=== PATIENT | female | born 1965 | race Caucasian/White ===

== ENCOUNTER 2018-02-07 21:05 | Emergency (ER) | payer BC ==
[~2018-02-07] VITALS: Ht 165.1 cm; Wt 116.0 kg
[~2018-02-07 21:05] MED LIST: HYDR-569 PO
[2018-02-07] MEDS ORDERED: BUSP10TA11 PO (21:21)
[2018-02-07] MEDS ORDERED: GABA-532 PO (21:21)
[2018-02-07] MEDS ORDERED: CLON0.1T PO (21:21)
[2018-02-07] MEDS ORDERED: THY60T PO (21:21)
[2018-02-07] MEDS ORDERED: QUET-1 PO (21:21)
[2018-02-07] MEDS ORDERED: DESV50TA PO (21:21)
[2018-02-07] MEDS ORDERED: ETOD-78 PO (21:21)
[2018-02-07] MEDS ORDERED: LISI-600 PO (21:21)
[2018-02-07] MEDS ORDERED: OXCA300T PO (21:21)
[2018-02-08] MEDS ORDERED: CLIN-80 PO (01:51)
[2018-02-08] MEDS ORDERED: clindamycin 150mg capsule PO ONE (01:55)
[2018-02-08 02:40] VITALS: BP 153/94
== END 2018-02-08 02:41 | disposition home or self-care (01) ==
LOC: ER 21:05
DX: N76.4 Abscess of vulva (principal); J45.909 Unspecified asthma, uncomplicated; Z88.5 Allergy status to narcotic agent; Z88.0 Allergy status to penicillin; Z88.8 Allergy status to other drugs, medicaments and biological substances; Z88.2 Allergy status to sulfonamides; Z79.899 Other long term (current) drug therapy
CPT/HCPCS: 99283

== ENCOUNTER 2022-08-01 18:33 | Emergency (ER) | payer BC, MEDICARE ==
[~2022-08-01] VITALS: Ht 165.1 cm; Wt 111.0 kg
[~2022-08-01 18:33] MED LIST changes: +BUSP10TA11 PO; +CLON0.1T PO; +DESV50TA PO; +GABA-532 PO; +HYDR-4383 PO; -HYDR-569 PO; +LISI20TA28 PO; +OXCA300T16 PO; +QUET-1 PO; +THY60T PO; +[UNRECOGNIZED DRUG - CODE] PO
[2022-08-01 19:18] VITALS: BP 140/90
[2022-08-01] MEDS: amox tr/potassium clavulanate 875/125mg TAB PO ONE (20:25)
[2022-08-01] MEDS: ketorolac trometh inj. 60 MG/2 ML VIAL IM ONE (20:25)
[2022-08-01 20:40] LABS: BASOPHILS % (AUTO) 0.7 % (0-1); EOSINOPHILS % (AUTO) 0.1 % (0-6); LYMPHOCYTES # (AUTO) 0.5 X10'3 (1.1-4.8); LYMPHOCYTES % (AUTO) 12.4 % (21-51); MEAN CORPUSCULAR HEMOGLOBIN 32.3 PG (27.0-31.0); MEAN CORPUSCULAR HGB CONC 33.5 g/dL (33.0-36.5); MEAN CORPUSCULAR VOLUME 96.6 FL (78-98); MEAN PLATELET VOLUME 10.2 FL (7.4-10.4); MONOCYTES # (AUTO) 0.4 X10'3 (0-0.9); MONOCYTES % (AUTO) 10.9 % (2-12); NEUTROPHILS # (AUTO) 2.8 X10'3 (1.8-7.7); NEUTROPHILS % (AUTO) 75.9 % (42-75); PLATELET COUNT 244 X10'3 (140-440); RED BLOOD COUNT 3.73 X10'6 (4.20-5.60); RED CELL DISTRIBUTION WIDTH 13.3 % (11.5-14.5); WHITE BLOOD COUNT 3.7 X10'3 (4.5-11.0)
[2022-08-01 20:49] LABS: ALANINE AMINOTRANSFERASE 22 U/L (12-78); ALBUMIN 3.2 G/DL (3.4-5.0); ALBUMIN/GLOBULIN RATIO 0.9 (1.1-1.5); ALKALINE PHOSPHATASE 96 IU/L (46-116); ANION GAP 10 (8-16); ASPARTATE AMINO TRANSFERASE 19 U/L (10-37); BILIRUBIN,TOTAL 0.4 MG/DL (0.1-1.0); BLOOD UREA NITROGEN 5 MG/DL (7-18); BUN/CREATININE RATIO 5.1 (6.6-38.0); CALCIUM 9.1 MG/DL (8.5-10.1); CHLORIDE 105 MMOL/L (99-107); CREATININE 0.98 MG/DL (0.40-0.90); GLUCOSE 107 MG/DL (70-104); SODIUM 144 MMOL/L (135-145); TOTAL PROTEIN 6.8 G/DL (6.4-8.2); eGFR 58 ML/MIN
[2022-08-01 21:17] LABS: POTASSIUM 2.7 MMOL/L (3.5-5.1)
[2022-08-01 21:30] LABS: CLARITY,URINE SLIGHTLY CLOUDY (Clear); COLOR,URINE YELLOW (Yellow); GLUCOSE, URINE NEGATIVE (Neg); KETONES,URINE 40 mg/dl (Neg); LEUKOCYTE ESTERASE ,URINE MODERATE (Neg); NITRITES, URINE NEGATIVE (Neg); OCCULT BLOOD,URINE NEGATIVE (Neg); PROTEIN,URINE NEGATIVE (Neg); UROBILINOGEN,URINE 0.2 E.U/dL (0.2-1.0)
[2022-08-01 21:35] LABS: UA COLLECTION TYPE CLN CATCH MIDSTREAM
[2022-08-01] MEDS: POTASSIUM BICARB 20meq eff tab 20 MEQ TABLET.EFF PO ONE (21:42)
[2022-08-01 21:43] LABS: MAGNESIUM 2.2 MG/DL (1.5-2.4)
[2022-08-01 21:45] LABS: SQUAMOUS EPITHELIAL CELL,UR MANY /LPF (FEW)
[2022-08-01 21:46] LABS: MUCUS STRANDS MODERATE /LPF (Neg); WBC CLUMPS,URINE MODERATE /HPF (NEGATIVE); WBC,URINE TNTC /HPF (0-4)
[2022-08-01 21:47] LABS: BACTERIA,URINE 1+ /HPF (Neg)
[2022-08-01 21:48] LABS: TRANSITIONAL EPI CELLS,URINE FEW /HPF
[2022-08-01] MEDS ORDERED: ONDA4TAB12 PO (21:56)
[2022-08-01] MEDS ORDERED: AMOX-117 PO (21:56)
[2022-08-01] MEDS ORDERED: POTA-188 PO (21:57)
[2022-08-01] MEDS ORDERED: NIRM1TAB PO (22:00)
== END 2022-08-01 22:04 | disposition home or self-care (01) ==
LOC: ER 18:34
DX: U07.1 COVID-19 (principal); H66.93 Otitis media, unspecified, bilateral; N30.00 Acute cystitis without hematuria; F31.9 Bipolar disorder, unspecified; F41.9 Anxiety disorder, unspecified; J45.909 Unspecified asthma, uncomplicated; Z88.5 Allergy status to narcotic agent; Z88.0 Allergy status to penicillin; Z88.2 Allergy status to sulfonamides; Z79.899 Other long term (current) drug therapy; Z79.1 Long term (current) use of non-steroidal anti-inflammatories (NSAID)
CPT/HCPCS: 36415; 80053; 81001; 83735; 85025; 87502; 87503; 87635; 93005; 96372; 99284; C9803; J1885

== ENCOUNTER 2024-08-30 09:30 | Outpatient (CLI) | payer OTHER, MEDICARE ==
[~2024-08-30 09:30] MED LIST changes: +NIRM1TAB PO; +ONDA-243 PO
== END 2024-08-30 23:59 | disposition home or self-care (01) ==
LOC: RAD 09:30
PROVIDERS: ATTEND Pediatrics Sports Medicine
DX: M19.012 Primary osteoarthritis, left shoulder (principal); M25.512 Pain in left shoulder
CPT/HCPCS: 73200